=== PATIENT | female | born 1975 | race Caucasian/White ===

== ENCOUNTER → 2018-07-22 08:06 | Outpatient (CLI) | payer MEDICARE | END | disposition home or self-care (01) | LOC: D.US 08:06 | DX: K76.0 Fatty (change of) liver, not elsewhere classified (principal) ==

== ENCOUNTER 2018-08-27 10:03 | Day surgery (SDC) | payer MEDICARE ==
[2018-07-22 09:49] LABS: BILIRUBIN - DIRECT 0.09 mg/dL (0.00-0.30); BILIRUBIN - INDIRECT 0.32 mg/dL (0.00-1.00); BILIRUBIN - TOTAL 0.41 mg/dL (0.2-1.3); PROTEIN - SERUM 7.7 g/dL (6.4-8.2)
[~2018-08-27] VITALS: Ht 157.5 cm; Wt 137.3 kg
--- NOTE | ~2018-08-27 | OP ---
PATIENT NAME: BENNY BILLINGSLEY MEDICAL RECORD: [id number] :71 LOCATION:[facility] ADMISSION DATE: SURGEON: PHYLLIS AMAYA MD DATE OF OPERATION: 08/27/2018 PROCEDURE: EGD with biopsy. REFERRING PHYSICIAN: Dr. Siena Park INDICATIONS: Ms. Billingsley is a delightful 43-year-old woman who has had symptoms of heartburn, right upper quadrant pain associated with eating and then changes in her bowel habits, sometimes having up to 5 bowel movements a day and then no bowel movement for several days. She has had a CT of the abdomen and pelvis with contrast, a right upper quadrant ultrasound and a PIPIDA with CCK stimulation, which have been negative or nondiagnostic. She presents for outpatient EGD. PREMEDICATIONS: Total IV anesthesia (propofol 300 mg, BMI 57). INSTRUMENT: Olympus video gastroscope. PROCEDURE AND FINDINGS: After informed consent, Ms. Billingsley' posterior pharynx was anesthetized with Cetacaine spray. She was placed in left lateral decubitus position, sedated as per anesthesia. After achieving adequate level of sedation, gastroscope was introduced per orally and advanced to duodenum without difficulty. Esophageal mucosa was without erythema, ulcers, strictures, or masses; appeared normal down the GE junction. Gastric mucosa was notable for patchy erythema in the body of the stomach and then streaks of erythema in the antrum. Antral biopsies were obtained to rule out Helicobacter pylori. No lesions were seen along the incisura, cardia, or fundus. Pylorus was patent and competent. Duodenal mucosa was without erythema or ulcers, appeared normal through the second portion. Biopsies were taken from the second portion of duodenum to rule out celiac disease. Gastroscope was then withdrawn. Ms. Billingsley tolerated the procedure well, no immediate complications. ASSESSMENT: 1. Mild to moderate gastritis. 2. Right upper quadrant pain. 3. Heartburn. 4. Altered bowel function. RECOMMENDATIONS: 1. Follow up histopathology. 2. Continue Nexium 40 mg daily. 3. Reflux precautions. 4. Recommend a colonoscopy. TRANSINT:[id number] Voice Confirmation ID: [id number] DOCUMENT ID: [id number] OPERATIVE REPORT [id number] BENNY BILLINGSLEY PHYLLIS AMAYA MD CC: SIENA PARK MD [id number] DICTATION DATE: 08/27/18 3497 OFFICE MACHINES WIRER: 08/27/18 1355 REG [facility] [address] [place] [id number]
[2018-08-27 10:51] LABS: HEMATOCRIT 36.6 % (36.0-48.0); HEMOGLOBIN 12.5 g/dL (12-16); MCH 29.8 pg (26.0-34.0); MCHC 34.2 g/dL (31.0-37.0); MCV 87.1 fL (80.0-100.0); MEAN PLATELET VOLUME 11.4 fL (7.4-10.4); PLATELET COUNT 184 10x3/uL (130-400); RDW 12.1 % (11.5-14.5); WBC 5.3 10x3/uL (4.8-10.8)
[2018-08-27 11:39] LABS: EOSINOPHILS 3 % (0-7); LYMPHOCYTES 31 % (15-50); MONOCYTES 6 % (2-11); NEUTROPHILS 58 % (40-80); PLATELET ESTIMATE NORMAL
[2018-08-27] MEDS ORDERED: NP THYROID90 MG PO (12:09)
[2018-08-27] MEDS ORDERED: LEVOTHYROXINE50 MCG PO (12:09)
[2018-08-27] MEDS ORDERED: PLAQUENIL 200200 MG PO (12:10)
[2018-08-27] MEDS ORDERED: AMBIEN10 MG PO (12:10)
[2018-08-27] MEDS ORDERED: IBUPROFEN800 MG PO (12:10)
[2018-08-27] MEDS ORDERED: NEXIUM40 MG PO (12:11)
[2018-08-27] MEDS ORDERED: FISH OIL 1,0001 CA1 PO (12:11)
[2018-08-27] MEDS ORDERED: POLY-VI-SOL W/I50 ML PO (12:11)
[2018-08-27] MEDS ORDERED: FEXOFENADINE HC60 MG PO (12:11)
[2018-08-27 12:31] VITALS: BP 131/76; Ht 157.5 cm; Wt 137.3 kg
== END 2018-08-27 14:00 | disposition home or self-care (01) ==
LOC: D.OPS 10:03
PROVIDERS: Anesthesiology; Internal Medicine Gastroenterology
DX: R19.4 Change in bowel habit (principal); R12 Heartburn; R10.9 Unspecified abdominal pain; K29.70 Gastritis, unspecified, without bleeding

== ENCOUNTER 2018-11-17 12:42 | Outpatient (CLI) | payer BC ==
[~2018-11-17] VITALS: Ht 157.5 cm; Wt 134.5 kg
--- NOTE | ~2018-11-17 | OP ---
PATIENT NAME: BENNY BILLINGSLEY MEDICAL RECORD: [id number] :71 LOCATION:[facility] ADMISSION DATE: SURGEON: PHYLLIS AMAYA MD DATE OF OPERATION: 11/17/2018 PROCEDURE: Colonoscopy with biopsy and polypectomy. REFERRING PHYSICIAN: Siena Park MD INDICATIONS: Ms. Billingsley is a pleasant 43-year-old woman with history of right upper quadrant pain, alternating diarrhea and constipation. She has had a CT of abdomen and pelvis with contrast, a right upper quadrant ultrasound, and PIPIDA with CCK stimulation which have been negative or nondiagnostic. EGD on 08/27/2018 showed [id number] gastritis. Duodenal biopsies showed mild focal edema and gastric biopsies were negative for Helicobacter pylori. She presents for outpatient colonoscopy. PREMEDICATIONS: Total IV anesthesia (BMI is 57). INSTRUMENT: Power [employer] video pediatric colonoscope. PROCEDURE AND FINDINGS: After receiving informed consent, Ms. Billingsley was placed in left lateral decubitus position and sedated as per anesthesia. After achieving an adequate level of sedation, digital rectal exam was performed that showed no external hemorrhoidal tags, fissures, or fistulas; normal sphincter tone; and no palpable rectal masses. Colonoscope was introduced per rectally and advanced to the cecum without difficulty. The cecum, IC valve, and appendiceal orifice were identified and appeared normal. As the colonoscope was withdrawn, careful inspection was made of the hernandez of the colon. Overall mucosa had normal vascular and fold pattern. There was minimal patchy erythema in the proximal ascending colon and biopsies were taken throughout the ascending colon to rule out microscopic colitis. In the proximal transverse colon, was a 0.75-cm sessile polyp removed with hot biopsy forcep technique. Retroflexion in the rectum showed minimal grade I internal hemorrhoids. A good prep was present. Withdrawal time was 7 minutes. Ms. Billingsley tolerated the procedure well. No immediate complications. ASSESSMENT: 1. Transverse colon polyp, status post polypectomy. 2. Minimal nonspecific erythema involving the ascending colon. Rule out microscopic colitis. 3. Suspect irritable bowel syndrome. RECOMMENDATIONS: 1. Follow up histopathology. 2. Avoid aspirin, nonsteroidal anti-inflammatory drugs, and CHAVEZ-2 inhibitors for 14 days post-polypectomy. 3. High fiber diet. 4. Recommend daily Metamucil. 5. Surveillance colonoscopy in 3 years. TRANSINT:[id number] Voice Confirmation ID: [id number] DOCUMENT ID: [id number] OPERATIVE REPORT [id number] BENNY BILLINGSLEY TERRI MD CC: SIENA PARK MD [id number] DICTATION DATE: 11/17/18 161 CHARGER OPERATOR HELPER: 11/17/18 1748 DEP CLI 11/17/18 [place] [id number]
[~2018-11-17 12:42] MED LIST: AMBIEN10 MG PO; FEXOFENADINE HC60 MG PO; FISH OIL 1,0001 CA1 PO; IBUPROFEN800 MG PO; LEVOTHYROXINE50 MCG PO; NEXIUM40 MG PO; NP THYROID90 MG PO; PLAQUENIL 200200 MG PO; POLY-VI-SOL W/I50 ML PO
[2018-11-17 13:19] LABS: BASOPHILS 0.5 % (0-2); EOSINOPHILS 4.4 % (0-7); HEMATOCRIT 38.2 % (36.0-48.0); IMMATURE GRANULOCYTES 0.2 % (0-5); LYMPHOCYTES 24.9 % (15-50); MCH 29.2 pg (26.0-34.0); MCV 85.8 fL (80.0-100.0); MEAN PLATELET VOLUME 11.3 fL (7.4-10.4); MONOCYTES 9.1 % (2-11); NEUTROPHILS 60.9 % (40-80); PLATELET COUNT 183 10x3/uL (130-400); RBC 4.45 10x6/uL (4.00-5.40); WBC 6.6 10x3/uL (4.8-10.8)
[2018-11-17] MEDS ORDERED: VITAMIN D2000 UNIT PO (13:27)
[2018-11-17] MEDS ORDERED: MAG-OXIDE400 MG PO (13:28)
[2018-11-17] MEDS ORDERED: CO Q-10200 MG PO (13:28)
[2018-11-17] MEDS ORDERED: CO Q-1030 MG PO (13:28)
[2018-11-17] MEDS ORDERED: BUSPAR10 MG PO (13:29)
[2018-11-17 13:35] VITALS: Ht 157.5 cm; Wt 134.5 kg
== END 2018-11-17 17:10 | disposition home or self-care (01) ==
LOC: D.OPS 12:42 → D.US 02-04 09:00
PROVIDERS: Anesthesiology
DX: R10.11 Right upper quadrant pain (principal); D12.5 Benign neoplasm of sigmoid colon; K64.0 First degree hemorrhoids; R19.7 Diarrhea, unspecified; K59.00 Constipation, unspecified; Z01.812 Encounter for preprocedural laboratory examination